=== PATIENT | female | born 1970 | race Caucasian/White ===

== ENCOUNTER 2017-09-30 12:46 | Outpatient (CLI) | payer OTHER ==
--- NOTE | 2017-09-30 15:25 | MMO ---
BILATERAL DIAGNOSTIC MAMMOGRAMS: HISTORY: This 47-year-old female presents for bilateral diagnostic mammogram. The patient indicates a 1-time episode only of some bloody colored discharge from her left breast over a month ago and this has not recurred. No palpable finding. FINDINGS: Scattered areas of fibroglandular density are noted throughout both breasts. This patient's mammogram is interpreted with the assistance of computer-aided detection. No old films. There are scattered typically benign calcifications. Multiple bilateral parenchymal density asymmetr ies. IMPRESSION: BI-RADS category 2, benign findings. Continued routine screening. POS: LOUISA
== END 2017-09-30 12:47 | disposition home or self-care (01) ==
LOC: MAMMO 12:46
PROVIDERS: ATTEND Obstetrics & Gynecology
DX: N64.52 Nipple discharge (principal)
CPT/HCPCS: 77066; G0204

== ENCOUNTER 2018-11-06 08:35 | Day surgery (SDC) | payer OTHER ==
[2018-11-05 11:33] VITALS: BMI 41.2
[2018-11-06 09:29] LABS: #Basophils 0.1 thou/uL (0.0-0.2); #Eosinphils 0.1 thou/uL (0.0-0.7); #Lymphocytes 1.9 thou/uL (1.20-3.40); #Monocytes 0.5 thou/uL (0.11-0.59); #Neutrophils 3.4 thou/uL (1.40-6.50); %Basophils 0.9 % (0.0-1.0); %Eosinophils 2.1 % (0.0-10.0); %Lymphocytes 31.4 % (21.0-51.0); %Monocytes 8.6 % (0.0-10.0); Hemoglobin 12.6 g/dL (12.0-16.0); Mean Corpuscular HGB CONC 34.3 g/dL (32.0-36.0); Mean Corpuscular Volume 87.5 fL (78.0-98.0); Platelet Count 199 thou/uL (130-400); RBC Distribution Width 11.7 % (11.5-14.5); Red Blood Cell (RBC) Count 4.19 mill/uL (4.20-5.40)
[2018-11-06] MEDS ORDERED: CEFAZOLIN 2 GM/50 ML BAG ONE (09:35)
[2018-11-06 09:49] LABS: Anion Gap 12 mmol/L (10-20); BUN (Urea Nitrogen) 23 mg/dL (7.0-18.7); Calc. Creatinine Clearance 122 mL/min (70-130); Calcium 9.6 mg/dL (7.8-10.44); Carbon Dioxide 32 mmol/L (22-29); Chloride 100 mmol/L (98-107); Estimated GFR-MDRD 60; Glucose 163 mg/dL (70-105); Potassium 3.7 mmol/L (3.5-5.1); Sodium 140 mmol/L (136-145)
[2018-11-06 10:01] LABS: Bilirubin Negative (Negative); Blood, Urine Negative (Negative); Clarity CLEAR (Clear); Glucose, Urine (Dipstick) Negative (Negative); Leukocyte Trace (Negative); Nitrite Negative (Negative); Protein, Urine (Dipstick) Negative (Neg-Trace); Urobilinogen 0.2 mg/dL (0.2-1.0); pH, Urine 7.5 (5.0-9.0)
[2018-11-06 10:02] LABS: Bacteria/HPF 1+ HPF (None Seen); Hyaline Casts/LPF 0-3 HYALINE CAST LPF (0-3 Hyaline); Pathc Cast-AUWi Flag 0.14 (0-2.49); RBC/HPF 0-3 HPF (0-3); WBC/HPF 0-3 HPF (0-3)
[2018-11-06] MEDS ORDERED: Bupivacaine PF 0.5% 30 ML VIAL ONE (10:38)
[2018-11-06] MEDS ORDERED: Bacitracin Zinc Ointment 30 gm TUBE ONE (10:38)
[2018-11-06] MEDS ORDERED: Betamet Acet/Betamet Na Ph 30 MG/5 ML VIAL ONE (10:38)
[2018-11-06] MEDS ORDERED: Fentanyl 100 MCG/2 ML VIAL ONE (10:39)
[2018-11-06] MEDS ORDERED: Midazolam HCl 2 mg/2 ml Vial ONE (10:39)
[2018-11-06] MEDS ORDERED: Ondansetron PF 4 MG/2 ML Vial ONE (20:28)
[2018-11-06] MEDS ORDERED: PROPOFOL 200 MG/20 ML VIAL ONE (20:28)
[2018-11-06] MEDS ORDERED: Ketorolac Tromethamine 30 MG/ML VIAL ONE (20:28)
[2018-11-06] MEDS ORDERED: Lidocaine 1% PF 5 ML VIAL ONE (20:28)
--- NOTE | 2018-11-08 01:27 | OP ---
DATE OF PROCEDURE: 11/06/2018 PREOPERATIVE DIAGNOSIS: Left carpal tunnel syndrome. POSTOPERATIVE DIAGNOSIS: Left carpal tunnel syndrome. PROCEDURE PERFORMED: Left carpal tunnel release. SURGEON: Jorgito Moreno MD ANESTHESIA: AGRICULTURE INTERNSHIP, conscious sedation with propofol augmented by a total of 20 mL 0.5% Marcaine block COMPLICATION: None. TOURNIQUET TIME: 14 minutes. ESTIMATED BLOOD LOSS: 5 mL. FINDINGS: Tight transcarpal ligament formation. No flexor tenosynovitis. DESCRIPTION OF PROCEDURE: After successful anesthesia listed above, the limb was prepped and draped. We gave 8 minutes for the local Marcaine to set before we made an incision. The limb was prepped and draped. Time-out was done appropriately. The limb was exsanguinated, tourniquet inflated to 250 mmHg pressure. The incision was made 2.5 cm beginning 5 mm distal to the volar wrist flexion crease and coursed to the Nice cardinal line in line with the ring finger/the ulnar edge of the palmaris longus. We then carried the incision through skin and subcutaneous tissue, and once identified the transcarpal ligament, self-retaining retractor was applied and we began the release at the midportion of the ligament distally visualized, protected neurovascular bundle at the end. Once this was opened, we then reversed field on visualization, dissected the soft tissue and skin/dermis from the transcarpal ligament visualized completely and then under direct visualization, released the transcarpal ligament from the midportion proximally using the same two instruments. Tourniquet was deflated at 14 minutes. Hemostasis obtained. 3 mL was Celestone was dripped over the nerve and the wound was closed with excellent hemostasis using interrupted 4-0 nylon. Bulky soft dressing was applied and the patient left the operating room without evidence of anesthetic or operative complication. Job ID: [id number]
== END 2018-11-06 13:00 | disposition home or self-care (01) ==
LOC: SDC 08:35
PROVIDERS: ATTEND Orthopaedic Surgery Hand Surgery
PROC: 01N50ZZ Release Median Nerve, Open Approach (ICD-10-PCS; principal; 2018-11-06)
DX: G56.02 Carpal tunnel syndrome, left upper limb (principal); I10 Essential (primary) hypertension; F32.9 Major depressive disorder, single episode, unspecified; E11.9 Type 2 diabetes mellitus without complications; E78.5 Hyperlipidemia, unspecified; F90.9 Attention-deficit hyperactivity disorder, unspecified type; M75.82 Other shoulder lesions, left shoulder; G54.0 Brachial plexus disorders; M75.102 Unspecified rotator cuff tear or rupture of left shoulder, not specified as traumatic; Z88.2 Allergy status to sulfonamides; Z88.8 Allergy status to other drugs, medicaments and biological substances
CPT/HCPCS: 36415; 80048; 81001; 85025; 85652; J0702; J1885; J2001; J2250; J2405; J2704; J3010; S0020

== ENCOUNTER 2020-09-02 19:48 | Emergency (ER) | payer OTHER, SELFPAY ==
--- NOTE | 2020-09-02 20:56 | RAD ---
PORTABLE CHEST: 09/02/20 HISTORY: Chest pain status post fall. Heart size is within normal limits for portable technique. Mediastinal structures appear unremarkable . The lungs are clear of infiltrate. Postoperative changes of the cervical spine are seen. IMPRESSION: No active intrathoracic disease. POS: OFF
--- NOTE | 2020-09-02 21:29 | CT ---
CT OF BRAIN PERFORMED WITHOUT CONTRAST ENHANCEMENT: 09/02/20 HISTORY: Head injury status post fall. The ventricular and cisternal system is within normal limits. There are no signs of intracerebral hem orrhage or extra-axial fluid collections. IMPRESSION: No acute intracranial abnormalities. POS: OFF
--- NOTE | 2020-09-02 21:42 | CT ---
CT OF CERVICAL SPINE PERFORMED WITHOUT CONTRAST ENHANCEMENT: 09/02/20 HISTORY: Neck pain status post fall. Vertebral bodies are normal in height. There is anterior cervical fusion extending from C5 to C7. Int ervening disc implants are noted. Facets are in normal alignment. There is no canal stenosis. Mild b ilateral foraminal narrowing at the C5-6 level slightly more pronounced on the right with the right p aracentral posterior osteophyte change compressing on the right side of the cord at this level and as sociated with some mild canal narrowing. The left foramen at C6-7 is borderline. There is no CT evide nce for fracture. Lung apices are clear. IMPRESSION: No CT evidence of fracture of the cervical spine. POS: OFF
== END 2020-09-02 21:37 | disposition home or self-care (01) ==
LOC: ERS 19:48
DX: S06.0X9A Concussion with loss of consciousness of unspecified duration, initial encounter (principal); S00.03XA Contusion of scalp, initial encounter; M54.2 Cervicalgia; E11.9 Type 2 diabetes mellitus without complications; I10 Essential (primary) hypertension; E78.00 Pure hypercholesterolemia, unspecified; F31.9 Bipolar disorder, unspecified; F41.9 Anxiety disorder, unspecified; F43.10 Post-traumatic stress disorder, unspecified; W01.198A Fall on same level from slipping, tripping and stumbling with subsequent striking against other object, initial encounter; Z79.899 Other long term (current) drug therapy; Z79.84 Long term (current) use of oral hypoglycemic drugs
CPT/HCPCS: 70450; 71045; 72125

== ENCOUNTER 2020-12-08 16:30 | Outpatient (CLI) | payer BC | END 2020-12-08 16:31 | disposition home or self-care (01) | LOC: SLEEPLAB 16:30 | PROVIDERS: ATTEND Family Medicine | DX: G47.33 Obstructive sleep apnea (adult) (pediatric) (principal); R53.83 Other fatigue; R09.89 Other specified symptoms and signs involving the circulatory and respiratory systems; G31.84 Mild cognitive impairment of uncertain or unknown etiology; F31.9 Bipolar disorder, unspecified; K21.9 Gastro-esophageal reflux disease without esophagitis; R06.83 Snoring; F41.8 Other specified anxiety disorders; R35.1 Nocturia; E11.9 Type 2 diabetes mellitus without complications; I10 Essential (primary) hypertension; R51.9 Headache, unspecified; E66.9 Obesity, unspecified | CPT/HCPCS: 95806 ==

== ENCOUNTER 2021-04-05 15:01 | Emergency (ER) | payer SELFPAY ==
[2021-04-05] MEDS ORDERED: diphenhydrAMINE 50 MG/ML VIAL ONE (15:40)
[2021-04-05] MEDS ORDERED: Metoclopramide HCl 10 MG/2 ML VIAL ONE (15:40)
== END 2021-04-05 17:30 | disposition home or self-care (01) ==
LOC: ERS 15:01
DX: R51.9 Headache, unspecified (principal); E11.9 Type 2 diabetes mellitus without complications; I10 Essential (primary) hypertension; E78.00 Pure hypercholesterolemia, unspecified; J30.2 Other seasonal allergic rhinitis
CPT/HCPCS: 96365; 96375; J1200; J2765

== ENCOUNTER 2021-04-09 14:26 | Emergency (ER) | payer SELFPAY ==
[2021-04-09 15:58] LABS: #Eosinphils 0.1 thou/uL (0.0-0.7); #Lymphocytes 1.6 thou/uL (1.20-3.40); #Monocytes 0.3 thou/uL (0.11-0.59); #Neutrophils 5.6 thou/uL (1.40-6.50); %Basophils 0.5 % (0.0-1.0); %Lymphocytes 21.3 % (21.0-51.0); %Monocytes 4.5 % (0.0-10.0); %Neutrophils 72.9 % (42.0-75.0); Hemoglobin 12.5 g/dL (12.0-16.0); Mean Corpuscular HGB CONC 33.3 g/dL (32.0-36.0); Mean Corpuscular Hemoglobin 27.6 pg (27.0-31.0); Mean Corpuscular Volume 82.8 fL (78.0-98.0); Mean Platelet Volume 9.3 fL (7.4-10.4); Platelet Count 206 thou/uL (130-400); RBC Distribution Width 13.4 % (11.5-14.5); Red Blood Cell (RBC) Count 4.53 mill/uL (4.20-5.40); White Blood Cell (WBC) Count 7.7 thou/uL (4.8-10.8)
[2021-04-09] MEDS ORDERED: Meclizine HCl 25 MG TAB ONE (16:12)
[2021-04-09 16:25] LABS: Anion Gap 16 mmol/L (10-20); BUN (Urea Nitrogen) 30 mg/dL (9.8-20.1); Calc. Creatinine Clearance 0 mL/min (70-130); Calcium 9.6 mg/dL (7.8-10.44); Carbon Dioxide 25 mmol/L (22-29); Chloride 99 mmol/L (98-107); Glucose 229 mg/dL (70-105); Potassium 4.9 mmol/L (3.5-5.1); Sodium 135 mmol/L (136-145)
== END 2021-04-09 17:21 | disposition home or self-care (01) ==
LOC: ERS 14:26
DX: R42 Dizziness and giddiness (principal); R11.0 Nausea; Z79.899 Other long term (current) drug therapy; Z79.84 Long term (current) use of oral hypoglycemic drugs; E11.9 Type 2 diabetes mellitus without complications; I10 Essential (primary) hypertension; E78.00 Pure hypercholesterolemia, unspecified
CPT/HCPCS: 70450; 80048; 85025; 93005

== ENCOUNTER 2022-01-11 09:14 | Outpatient (CLI) | payer OTHER | END 2022-01-11 09:15 | disposition home or self-care (01) | LOC: MRI 09:14 | PROVIDERS: ATTEND Neurological Surgery | DX: M51.36 Other intervertebral disc degeneration, lumbar region (principal); M47.816 Spondylosis without myelopathy or radiculopathy, lumbar region; M47.817 Spondylosis without myelopathy or radiculopathy, lumbosacral region; R93.7 Abnormal findings on diagnostic imaging of other parts of musculoskeletal system | CPT/HCPCS: 72148 ==